=== PATIENT | female | born 1995 | race Caucasian/White ===

== ENCOUNTER 2016-05-19 21:01 | Emergency (ER) | payer MEDICAID, OTHER ==
[2016-05-19 21:27] VITALS: BP 128/70
[2016-05-19] MEDS ORDERED: IBUPROFEN 400 MG TABLET ONE (22:07)
[2016-05-19] MEDS ORDERED: IBUPROFEN 400 MG TABLET PO ONE (22:07)
--- NOTE | 2016-05-19 22:07 | ERNOTE ---
Back Pain ER HPI Date of Service: 05/19/16 Time Seen by Provider: 05/19/16 22:03 Source: patient Exam Limitations: no limitations Immunizations: IMMUNIZATION HX Immunizations Up to Date Yes History of Influenza Vaccine Yes Allergies/Adverse Reactions: Allergies No Known Allergies Allergy (Unverified 05/19/16 21:27) Home Medications: HOME MEDICATIONS Cyclobenzaprine HCl [Flexeril] 10 mg PO TID PRN #30 tablet 05/19/16 [Last Taken Unknown] Narrative: pt has pain in the medial aspect of the right shoulder blade for 24 hours. Denies any trauma, shortness of breath. Review of Systems - Review of Systems Constitutional: Present: no symptoms reported EYE: Present: no symptoms reported ENT: Present: no symptoms reported Respiratory: Present: no symptoms reported Cardiology: Present: no symptoms reported Gastrointestinal/Abdominal: Present: no symptoms reported - Patient's Past Medical History Patient History - Medical: No pertinent hx Patient History - Cardiac/Respiratory: No pertinent hx Patient History - Cancer: No Hx of Cancer Patient History - Surgical Procedures: Cholecystectomy, T & A - Social History Living Situations: home Psych History: No pertinent hx Smoking Status: Never smoker Patient requests Smoking Cessation Consult: No Initiate information on Smoking Cessation: No Alcohol Use: none Drug Use: none - Immunizations Immunizations Up to Date: Yes History of Influenza Vaccine: Yes Physical Exam - Physical Exam General Appearance: Present: wd/wn, alert, no apparent distress Ears, Nose, Throat: Present: normal ENT inspection, normal pharynx Respiratory: Present: no respiratory distress, normal breath sounds, no accessory muscle use, chest nontender, lungs clear Cardiovascular/Chest: Present: regular rate, rhythm, no murmur, normal peripheral pulses Back Exam: Present: other - pt has tenderness of the medial aspect of her right scapula. manipulation and adduction of the right upper arm worsns the pain. when the weight of the right upper extremity is supported the pain is better. She does have muscle spasm in that area ED Progress - Vital Signs Patient's Vital Signs:: I have reviewed the patient's vital signs. Vital Signs: Vital Signs 05/19/16 21:23 Temperature 36.7 C Pulse Rate 96 Respiratory 18 Rate Blood Pressure 128/70 O2 Sat by Pulse 100 Oximetry - Progress/Reassessment Chief Complaint: Back Pain Departure Clinical Impression: Muscle spasm - Departure Disposition: Home self-care Condition: Good Referrals: Lyubov Mckeon DO [Primary Care Provider] - Prescriptions: Cyclobenzaprine HCl [Flexeril] 10 mg PO TID PRN #30 tablet PRN Reason: Pain
== END 2016-05-19 22:20 | disposition home or self-care (01) ==
LOC: ER 21:01
DX: M62.838 Other muscle spasm (principal)

== ENCOUNTER 2016-10-06 22:51 | Emergency (ER) | payer SELFPAY ==
[2016-10-07] MEDS ORDERED: KETOROLAC TROMETHAMINE 60 MG/2 ML VIAL IM ONE ×2 (00:10→00:20)
--- NOTE | 2016-10-07 00:14 | ERNOTE ---
Upper Extremity HPI - General Extremities Pain Location: hand: left Time Seen by Provider: 10/07/16 00:01 Source: patient Exam Limitations: no limitations - Immun/Allergies/Home Medications Immunizations: IMMUNIZATION HX Immunizations Up to Date Yes History of Influenza Vaccine Yes Allergies/Adverse Reactions: Allergies Allergy/AdvReac Type Severity Reaction Status Date / Time No Known Allergies Allergy Verified 10/06/16 23:08 Home Medications: HOME MEDICATIONS Nabumetone 750 mg PO BID #20 tablet 10/07/16 [Last Taken Unknown] - History of Present Illness Narrative: Pt hit table with hand. Now swollen and tender Occurred: just prior to arrival Location of Incident: home Severity: moderate Method of Injury: Reports: direct blow, sports injury - was punching a speed bag and missed the bag hitting the table Modifying Factors - (Improves): Reports: immobilization Modifying Factors - (Worsens): Reports: movement Other Injuries: Reports: none Review of Systems - Review of Systems Constitutional: Absent: recent illness Gastrointestinal/Abdominal: Absent: nausea, vomiting Musculoskeletal: Present: See HPI Skin: Present: lumps Neurological: Absent: numbness, tingling - Patient's Past Medical History Patient History - Medical: No pertinent hx Patient History - Cardiac/Respiratory: No pertinent hx Patient History - Cancer: No Hx of Cancer Patient History - Surgical Procedures: Cholecystectomy, T & A Patient History - Other: None LMP (females 10-50): last week - Social History Living Situations: home Abuse History: No History of abuse Psych History: No pertinent hx Smoking Status: Never smoker Have you smoked in the past 12 months: No Do you dip or chew tobacco: No Alcohol Use: occasionally Drug Use: none - Immunizations Immunizations Up to Date: Yes History of Influenza Vaccine: Yes Physical Exam - Physical Exam General Appearance: Present: wd/wn, alert, mild distress Head Exam: Present: normal inspection, no evidence of injury Neck: Present: normal inspection, nontender, supple Respiratory: Present: no respiratory distress, no accessory muscle use Extremity Exam: Present: normal except - - swelling over left 3-4 MCPJ's. Mildly restricted ROM. No MC bony tenderness. Neurological Exam: Present: alert, oriented, no motor/sensory deficits Skin Exam: Present: other - bruising and swelling over left 3-4 MCPJ's ED Progress - Vital Signs Vital Signs: Vital Signs 10/06/16 23:03 Temperature 37.1 C Pulse Rate 88 Respiratory 16 Rate Blood Pressure 127/83 O2 Sat by Pulse 100 Oximetry - X-Ray X-Ray #1 X-Ray: hand Interpretation: Interp. by me X-ray Comments: No fracture or dislocation - Progress/Reassessment Chief Complaint: Upper Extremity Injury/Problem Departure Clinical Impression: Contusion Qualifiers: Encounter type: initial encounter Contusion area: hand Laterality: left Qualified Code(s): S60.222A - Contusion of left hand, initial encounter - Departure Disposition: Home self-care Condition: Good Instructions: Contusion, [id number] Additional Instructions: keep the hand wrapped for 3-5 days until the swelling goes down and it begins to feel better. Referrals: Lyubov Mckeon, [Primary Care Provider] - Prescriptions: Nabumetone 750 mg PO BID #20 tablet
[2016-10-07 00:26] VITALS: BP 124/66
== END 2016-10-07 00:30 | disposition home or self-care (01) ==
LOC: ER 22:51
DX: S60.222A Contusion of left hand, initial encounter (principal); X58.XXXA Exposure to other specified factors, initial encounter; Y93.59 Activity, other involving other sports and athletics played individually; Y92.009 Unspecified place in unspecified non-institutional (private) residence as the place of occurrence of the external cause